=== PATIENT | female | born 1950 | race Asian ===

== ENCOUNTER 2018-04-22 13:44 | Observation (INO) | payer MEDICARE, BC ==
[2018-04-22] MEDS ORDERED: Morphine 5 MG/ML SYRINGE ONE (14:35)
[2018-04-22] MEDS ORDERED: Nitroglycerin 2% Ointment 1 INCH/1 GM Packet ONE (14:36)
[2018-04-22] MEDS ORDERED: Ondansetron PF 4 MG/2 ML Vial ONE ×2 (14:36→16:58)
[2018-04-22 15:04] LABS: Anion Gap 15 mmol/L (10-20); BUN (Urea Nitrogen) 7 mg/dL (9.8-20.1); Calc. Creatinine Clearance 0 mL/min (70-130); Calcium 8.9 mg/dL (7.8-10.44); Carbon Dioxide 22 mmol/L (23-31); Chloride 93 mmol/L (98-107); Estimated GFR-MDRD Greater than 90; Glucose 116 mg/dL (80-115); Potassium 4.3 mmol/L (3.5-5.1); Sodium 126 mmol/L (136-145)
[2018-04-22 15:07] LABS: #Lymphocytes 0.9 thou/uL (1.20-3.40); #Monocytes 0.2 thou/uL (0.11-0.59); #Neutrophils 2.1 thou/uL (1.40-6.50); %Basophils 0.7 % (0.0-1.0); %Eosinophils 1.1 % (0.0-10.0); %Lymphocytes 27.7 % (21.0-51.0); %Monocytes 6.3 % (0.0-10.0); %Neutrophils 64.2 % (42.0-75.0); Elliptocytes SLIGHT = 2-5 cells (100X) (0-1/hpf); Hemoglobin 11.4 g/dL (12.0-16.0); MDiff Complete? YES; Mean Corpuscular HGB CONC 31.8 g/dL (32.0-36.0); Mean Corpuscular Hemoglobin 21.4 pg (27.0-31.0); Mean Corpuscular Volume 67.4 fl (81.0-99.0); Mean Platelet Volume 7.1 fL (7.4-10.4); Microcytosis SLIGHT = 6-15 cells (100X) (0-5/hpf); PLT Morphology Comment Appears Adequate; Platelet Count 198 thou/uL (130-400); Poikilocytosis SLIGHT = 6-15 cells (100X) (0-5/hpf); RBC Distribution Width 13.1 % (11.5-14.5); Red Blood Cell (RBC) Count 5.33 mill/uL (4.20-5.40); Tear Drops SLIGHT = 2-5 cells (100X) (0-1/hpf); White Blood Cell (WBC) Count 3.3 thou/uL (4.8-10.8)
[2018-04-22 15:08] LABS: Troponin I Less than 0.010 ng/mL (< 0.028)
--- NOTE | 2018-04-22 15:18 | RAD ---
UPRIGHT PORTABLE CHEST 1 VIEW: Date: 04/22/18 HISTORY: 67-year-old female with history of left shoulder pain, left neck pain, upper back pain, and chest mariano n. FINDINGS: Heart size is normal. The lungs are clear. No pneumonia, edema, or pleural effusion. IMPRESSION: No acute intrathoracic disease. Atherosclerosis of aorta. POS: [facility]
[2018-04-22 17:32] VITALS: BMI 18.9
[2018-04-22 18:20] LABS: Troponin I Less than 0.010 ng/mL (< 0.028)
[2018-04-22] MEDS: Sodium Chloride 0.9% 1,000 ML IV SCH (18:30)
[2018-04-22] MEDS: Acetaminophen 325 MG TAB PO PRN (18:31)
[2018-04-22] MEDS ORDERED: Ketorolac Tromethamine 30 MG/ML VIAL IVP SCH ×2 (20:00)
[2018-04-22] MEDS ORDERED: traZODone HCl 50 MG TAB PO PRN (20:06)
[2018-04-22] MEDS ORDERED: ALPRAZolam 0.25 MG TAB PO PRN (20:06)
[2018-04-22] MEDS ORDERED: diphenhydrAMINE 12.5 MG/5 ML UDCUP PO PRN (20:06)
[2018-04-22] MEDS: Famotidine 20 MG TAB PO SCH (20:08)
[2018-04-22] MEDS: Docusate 100 MG CAP PO SCH (20:08)
[2018-04-22 20:49] LABS: Troponin I Less than 0.010 ng/mL (< 0.028)
[2018-04-22] MEDS: Sucralfate 1 GM/10 ML UDCUP PO SCH (20:53)
[2018-04-22] MEDS: Ondansetron ODT 4 MG TAB PO PRN (20:59)
[2018-04-22] MEDS: Acetaminophen/Codeine 30-300mg Tablet PO PRN (20:59)
--- NOTE | 2018-04-22 21:01 | HP ---
DATE OF ADMISSION: 04/22/2018 CHIEF COMPLAINT: Left shoulder pain. HISTORY OF PRESENT ILLNESS: This is a 67-year-old female, who was in her usual state of health until 4 days ago. She went to a grocery store and was carrying a very heavy bag and she noticed a s udden onset of strain in her left shoulder and actually at the left scapular area. It was radiating to the shoulder. The patient was taking ibuprofen 200-400 mg very frequently at home and with no rel ief, she decided to come to the ER at [facility] and had an EKG, which was read as STEMI, but th e troponins were normal. So, a repeat EKG was done, which just showed a right bundle-branch block an d she was given morphine 4 mg, which made her very nauseous and she started throwing up. She also no kana to have a low sodium of 126. The patient is being admitted for hyponatremia and worsening pain o f the shoulder. The patient was seen along with her at the bedside. She was alert and orien kana. She was in excruciating pain. She complains of pain of 7/10 in intensity, sometimes goes up to 10, with no relief and it hurts when moving the neck, but denies having any injuries to the neck or any falls. Denies having any rash or any fever. Denies having any chest pain. No nausea, but she h ad vomiting following the morphine. She does not have any other known medical issues. Otherwise, bhanu purcell is in good health. PAST MEDICAL HISTORY: History of anxiety disorder, history of insomnia, and also has a history of os teoporosis. PAST SURGICAL HISTORY: Had L4-L5 repair in the past. SOCIAL HISTORY: The patient is not a known smoker. No history of alcohol. No history of illicit dr ug use. FAMILY HISTORY: No significant family history of coronary artery disease, but her daughter suffers w ith lupus. REVIEW OF SYSTEMS: All 12 systems are reviewed with the patient thoroughly and found to be negative at this time, except the ones described in HPI. Constitutional: Weight loss or gain, sense of well-being, ability to conduct usual activities, exerc ise tolerance. Skin/Breast: Rash, itching, changes in hair growth or loss, nail changes, breast lumps, tenderness, swelling, nipple discharge. Eyes: Vision, double vision, tearing, blind spots, pain. ENT/Mouth: Headaches (location, time of onset, duration, precipitating factors), vertigo, lightheadedness, injury. Vision, double vision, tearing, blind spots, pain, nose b leeding, colds, obstruction, discharge, dental difficulties, gingival bleeding, dentures, neck stiffn ess, pain, tenderness, masses in thyroid or other areas Cardiovascular: Precordial pain, substernal distress, palpitations, syncope, dyspnea on exertion, or thopnea, nocturnal paroxysmal dyspnea, edema, cyanosis, hypertension, heart murmurs, varicosities, ph lebitis, claudication. Respiratory: Pain, shortness of breath, wheezing, stridor, cough, hemoptysis, fever or night sweats Gastrointestinal: Poor appetite, dysphagia, indigestion, abdominal pain, heartburn, eructation, naus ea, vomiting, hematemesis, jaundice, constipation, or diarrhea, abnormal stools (steph-colored, tarry, bloody, greasy, foul smelling), flatulence, hemorrhoids, recent changes in bowel habits. Genitourinary: Urgency, frequency, dysuria, nocturia, hematuria, polyuria, oliguria, unusual (or iva nge in) color of urine, stones, hesitancy, change in size of stream, dribbling, acute retention or in continence, libido, potency. Musculoskeletal: Pain, swelling, redness or heat of muscles or joints, limitation, of motion, muscular weakness, atrophy, cramps. Neurologic/Psychiatric: Convulsions, paralyses, tremor, incoordination, paresthesias, difficulties w ith memory of speech, sensory or motor disturbances, or muscular coordination (ataxia, tremor), emoti onal problems, anxiety, depression, previous psychiatric care, unusual perceptions, hallucinations. Allergy/Immunologic: Skin rash, anemia, bleeding tendency, polydipsia, polyuria, intolerance to heat or cold. ALLERGIES: The patient has multiple allergies. DOXYCYCLINE, PHENOXYPYRIDINE, SULFA ANTIBIOTICS. HOME MEDICATIONS: 1. Alendronate 10 mg p.o. daily. 2. Alprazolam 0.25 mg p.o. p.r.n. 3. Diphenhydramine 12.5 mg p.o. daily. 4. Eletriptan 20-40 mg p.o. p.r.n. 5. Methocarbamol 750 mg p.o. daily. 6. Trazodone 50 mg p.o. p.r.n. PHYSICAL EXAMINATION: VITAL SIGNS: Blood pressure 140/69, heart rate is 58, respiratory rate is 15, saturation is 100% on room air. GENERAL: The patient is moderately built and moderately nourished. She appears to be in acute distr ess at this time with pain. She was seen lying in the bed supine. HEENT: Atraumatic, normocephalic. PERRLA. Extraocular muscles are intact. Oral mucosa is pink and moist. CARDIOVASCULAR: S1, S2 normal. No murmurs, rubs, or gallops. LUNGS: Bilateral air entry was equal. No wheezing, no crackles. ABDOMEN: Soft, nontender. No guarding. No rebound tenderness. Bowel sounds are normal. MUSCULOSKELETAL: No calf tenderness. No pedal edema. No joint tenderness. No joint swelling. SKIN: No cyanosis, no erythema, no rash, no pallor. CENTRAL NERVOUS SYSTEM: Cranial nerve examination II-XII were intact. No focal deficits were noted. NECK: No cervical spine tenderness was noted, but she does have pain on the left scapular area. No thyromegaly. No lymphadenopathy. PSYCHIATRIC: No signs of suicidal ideation. No signs of yaima were noted. LABORATORY DATA: WBC 3.3, hemoglobin is 11.4, hematocrit is 35.9, platelets 198. Sodium is 126, pot assium 4.3, chloride is 93, bicarbonate is 22, BUN is 7, creatinine is 0.63. Troponin was normal at 0.01. ASSESSMENT: 1. Acute hyponatremia. 2. Acute cervical spine strain. 3. Severe dehydration. 4. History of anxiety disorder. 5. History of osteoporosis. PLAN: 1. Plan is to closely monitor this patient. We will start the patient on normal saline at this time . The patient has severe hyponatremia, which should correct with normal saline. 2. The patient has left shoulder pain, which is coming from the scapular area, either it could be a cervical spine strain. As the patient has a strong history of osteoporosis, there could be micro fra ctures of the bone. We will do a CT of the cervical spine to look for any evidence of fracture or an y disk herniation. 3. We will treat the pain with Toradol as the patient has been very sensitive to morphine and other narcotics. We will do gastric protection with Carafate before meals and at bedtime along with Proton ix 40 mg daily. 4. The patient is severely dehydrated. We will continue to hydrate her at this time. 5. Deep venous thrombosis prophylaxis, Lovenox. I spent 75 minutes with this patient.
[2018-04-23] MEDS: Ketorolac Tromethamine 30 MG/ML VIAL IVP SCH ×3 (03:34→11:29)
[2018-04-23] MEDS: Sodium Chloride 0.9% 1,000 ML IV SCH (03:59)
[2018-04-23] MEDS: Acetaminophen/Codeine 30-300mg Tablet PO PRN (05:08)
[2018-04-23 05:35] LABS: #Lymphocytes 1.3 thou/uL (1.20-3.40); #Monocytes 0.4 thou/uL (0.11-0.59); #Neutrophils 2.9 thou/uL (1.40-6.50); %Basophils 0.3 % (0.0-1.0); %Eosinophils 0.6 % (0.0-10.0); %Lymphocytes 28.4 % (21.0-51.0); %Monocytes 7.7 % (0.0-10.0); %Neutrophils 62.9 % (42.0-75.0); Hemoglobin 11.5 g/dL (12.0-16.0); Mean Corpuscular HGB CONC 33.1 g/dL (32.0-36.0); Mean Corpuscular Hemoglobin 22.1 pg (27.0-31.0); Mean Corpuscular Volume 66.7 fl (81.0-99.0); Mean Platelet Volume 10.7 fL (7.4-10.4); Platelet Count 210 thou/uL (130-400); RBC Distribution Width 14.3 % (11.5-14.5); Red Blood Cell (RBC) Count 5.21 mill/uL (4.20-5.40); White Blood Cell (WBC) Count 4.7 thou/uL (4.8-10.8)
[2018-04-23 05:44] LABS: Anion Gap 12 mmol/L (10-20); BUN (Urea Nitrogen) 6 mg/dL (9.8-20.1); Calc. Creatinine Clearance 57 mL/min (70-130); Calcium 8.2 mg/dL (7.8-10.44); Carbon Dioxide 19 mmol/L (23-31); Chloride 97 mmol/L (98-107); Estimated GFR-MDRD Greater than 90; Glucose 104 mg/dL (80-115); Potassium 3.7 mmol/L (3.5-5.1); Sodium 124 mmol/L (136-145)
[2018-04-23] MEDS: Sucralfate 1 GM/10 ML UDCUP PO SCH ×2 (07:58→12:10)
[2018-04-23] MEDS ORDERED: Methocarbamol 500 MG TAB PO SCH (09:00)
[2018-04-23] MEDS ORDERED: Enoxaparin Sodium 40 MG/0.4 ML SYRINGE SC SCH (09:00)
[2018-04-23] MEDS: Docusate 100 MG CAP PO SCH (10:00)
[2018-04-23] MEDS: Famotidine 20 MG TAB PO SCH (10:00)
[2018-04-23] MEDS: Ondansetron ODT 4 MG TAB PO PRN (10:03)
--- NOTE | 2018-04-23 10:03 | CT ---
CERVICAL SPINE CT SCAN WITHOUT IV CONTRAST: Date: 04/23/18 HISTORY: 67-year-old female with history of neck pain. FINDINGS: There is some generalized disc osteophytosis and facet arthrosis, evidence for spondylosis. No eviden ce for acute fracture or dislocation. There are some moderate foraminal stenotic changes at C5-C6. IMPRESSION: Spondylosis. No acute fracture or dislocation. POS: [facility]
[2018-04-23] MEDS: Acetaminophen 325 MG TAB PO PRN (10:05)
[2018-04-23 12:13] VITALS: BP 123/59; TEMP 97.7
[2018-04-23] MEDS: Sucralfate 1 GM TAB PO SCH ×2 (12:16→18:10)
--- NOTE | 2018-04-23 15:26 | PDOC.PN ---
- Subjective Encounter Start Date: 04/23/18 Encounter Start Time: 15:32 Patient seen and examined following admission for acute neck pain, hyponatremia and dehydration. Still has some pain but feels much better. No acute events overnight. - Objective Resuscitation Status: Resuscitation Status FULL:Full Resuscitation MAR Reviewed: Yes Vital Signs & Weight: Vital Signs (12 hours) Temp Pulse Resp BP Pulse Ox 04/23/18 12:13 97.7 F 69 123/59 L 98 04/23/18 08:00 96.3 F L 61 16 04/23/18 07:56 96.3 F L 61 16 125/60 99 04/23/18 04:01 97.4 F L 56 L 20 128/58 L 98 Weight Weight 87 lb 8 oz I&O: 04/22/18 04/23/18 04/24/18 06:59 06:59 06:59 Intake Total 1787 Output Total 3200 Balance -1413 Result Diagrams: 04/23/18 04:32 04/23/18 04:32 Phys Exam - Physical Examination Constitutional: NAD HEENT: moist MMs, sclera anicteric Neck: no JVD Limited range of movement 2/2 pain. Respiratory: no wheezing, no rales, no rhonchi, clear to auscultation bilateral Cardiovascular: RRR, no significant murmur, no rub Gastrointestinal: soft, non-tender, no distention, positive bowel sounds Musculoskeletal: no edema, pulses present Neurological: non-focal, moves all 4 limbs Psychiatric: normal affect, A&O x 3 Skin: no rash, normal turgor Dx/Plan (1) Neck pain, acute Code(s): M54.2 - CERVICALGIA Status: Acute Comment: Likely from cervical spondylosis, as seen on CT. Will continue pain control and muscle relaxants. PT/ OT as well. (2) Hyponatremia Code(s): E87.1 - HYPO-OSMOLALITY AND HYPONATREMIA Status: Acute Comment: Unclear etiology. ? SiADH. Will obtain ueine studies w Serum and uerine osmolality, as well as lipid profile. D/C IVF for now. (3) Anxiety disorder Code(s): F41.9 - ANXIETY DISORDER, UNSPECIFIED Status: Chronic Qualifiers: Anxiety disorder type: generalized anxiety disorder Qualified Code(s): F41.1 - Generalized anxiety disorder (4) Osteoporosis Code(s): M81.0 - AGE-RELATED OSTEOPOROSIS W/O CURRENT PATHOLOGICAL FRACTURE Status: Acute Qualifiers: Osteoporosis type: age-related Presence of current pathological fracture: without current pathological fracture Qualified Code(s): M81.0 - Age-related osteoporosis without current pathological fracture Comment: Continue Fosamax. - Plan cont current plan of care, plan discussed w/ family, PT/OT, out of bed/ambulate , DVT proph w/lovenox * . Review of Systems - Medications/Allergies Allergies/Adverse Reactions: Allergies Allergy/AdvReac Type Severity Reaction Status Date / Time doxycycline Allergy Verified 04/22/18 17:59 phenazopyridine Allergy Verified 04/22/18 17:59 [From Pyridate] Sulfa (Sulfonamide Allergy Verified 04/22/18 17:59 Antibiotics) sumatriptan [From Imitrex] Allergy Verified 04/22/18 17:59 Medications: Current Medications Acetaminophen (Tylenol) 650 mg PO Q4H PRN PRN Reason: Headache/Fever or Pain Last Admin: 04/23/18 10:05 Dose: 650 mg Acetaminophen/Codeine Phosphate (Tylenol #3) 1 tab PO Q6H PRN PRN Reason: pain Last Admin: 04/23/18 05:08 Dose: 1 tab Alendronate Sodium (Fosamax) 10 mg PO 0600 [facility] Last Admin: 04/23/18 05:57 Dose: 10 mg Alprazolam (Xanax) 0.25 mg PO HSPRN PRN PRN Reason: Insomnia Last Admin: 04/22/18 20:26 Dose: 0.25 mg Diphenhydramine HCl (Benadryl) 12.5 mg PO DAILYPRN PRN PRN Reason: Hives Docusate Sodium (Colace) 100 mg PO BID [facility] Last Admin: 04/23/18 10:00 Dose: 100 mg Enoxaparin Sodium (Lovenox) 40 mg SC 0900 [facility] Last Admin: 04/23/18 10:00 Dose: 40 mg Famotidine (Pepcid) 20 mg PO BID [facility] Last Admin: 04/23/18 10:00 Dose: 20 mg Ketorolac Tromethamine (Toradol) 30 mg IVP 0400,1200,2000 [facility] Stop: 04/23/18 20:01 Last Admin: 04/23/18 11:29 Dose: 30 mg Methocarbamol (Robaxin) 750 mg PO DAILY [facility] Last Admin: 04/23/18 09:59 Dose: Not Given Ondansetron HCl (Zofran Odt) 4 mg PO Q6H PRN PRN Reason: Nausea/Vomiting Last Admin: 04/23/18 10:03 Dose: 4 mg Pantoprazole Sodium (Protonix) 40 mg PO DAILY [facility] Last Admin: 04/23/18 10:00 Dose: 40 mg Sodium Chloride (Flush - Normal Saline) 10 ml IVF Q12HR [facility] Last Admin: 04/23/18 10:01 Dose: Not Given Sodium Chloride (Flush - Normal Saline) 10 ml IVF PRN PRN PRN Reason: Saline Flush Sucralfate (Carafate) 1 gm PO ACHS [facility] Last Admin: 04/23/18 12:16 Dose: Not Given Trazodone HCl (Desyrel) 50 mg PO HSPRN PRN PRN Reason: insomnia
[2018-04-23] MEDS ORDERED: Ibuprofen 600 MG TAB PO PRN (15:33)
[2018-04-23] MEDS ORDERED: Lorazepam 2 MG/ML VIAL SLOW IVP SCH (16:15)
[2018-04-23] MEDS ORDERED: Sucralfate 1 GM TAB PO SCH (17:00)
[2018-04-23 18:23] LABS: Potassium, Urine Less than 10.0 mmol/L; Sodium, Urine 30 mmol/L (Not Available); Urea Nitrogen, Random Urine 98 mg/dl
--- NOTE | 2018-04-23 20:07 | DIS ---
DATE OF ADMISSION: 04/22/2018 DATE OF DISCHARGE: 04/23/2018 DISCHARGE DIAGNOSES: Cervical spondylosis, severe dehydration, anxiety disorder, osteoporosis, hypon atremia. HISTORY OF PRESENT ILLNESS AND HOSPITAL COURSE: Ms. Ale Aguilera is a 67-year-old female with a past medica l history of anxiety disorder, insomnia, osteoporosis who was in her usual state of health until 4 da ys ago after she went to a grocery store and after carrying a very heavy bag, she noticed a sudden on set of strain in her left shoulder and left scapular area radiating to the shoulder. She usually daphne es about 200-400 mg of ibuprofen at home for pain with no relief and decided to come to [facility] on ER for further evaluation. She had an initial EKG, which was read as STEMI, but her troponins rem ained normal and she had no chest pain. A repeat EKG was done and it showed right bundle branch bloc k. She was given IV morphine 4 mg, which made her nauseous and had some vomiting episodes. In addit ion, she was noted to have a sodium of 126. She was then admitted for hyponatremia and worsening mariano n in her right shoulder. Physical examination showed pain, which was excruciating, 10/10. She had a CT of her cervical spine, which showed cervical spondylosis, but no other abnormalities. While in h ospital, her pain was controlled with Toradol. Her hyponatremia was also being investigated as her s odium was 126 and she was started on hydration with further reduction in serum sodium up to 124. She had been started on hydration for this, so IV fluids were discontinued. Further investigation was d iscussed with the patient, but the patient reported her pain was better and would like to be discharg ed home. She has an appointment tomorrow with her primary care physician for pain control and she di d not want to miss this appointment. Further lab review reveals she had a sodium of 127 in 2012, so it is likely this might be chronic hyponatremia. Since the patient was asymptomatic and urine study shows urine sodium of 30 and urine potassium less than 10 and BUN of 98, it was deemed okay to discha rge the patient home as she has followup with her primary care physician tomorrow. She is instructed to ensure she has repeat labs at the clinic tomorrow. DISCHARGE MEDICATIONS: Trazodone 50 mg as needed for insomnia, methocarbamol 750 mg daily, eletripta n 20-40 mg as needed for headaches, alprazolam 0.25 mg as needed for insomnia, Benadryl 12.5 mg as ne eded for hives p.r.n., alendronate 70 mg every 7 days. PHYSICAL EXAMINATION: The patient was seen and examined on the day of discharge. For further detail s, see today's progress notes. LABORATORY DATA: WBC 4.7, hemoglobin 11.5, platelet count 210,000. Sodium 124, potassium 3.7, chlor dawson 97, carbon dioxide 19, anion gap 12, BUN 6, creatinine 0.59, glucose 104, calcium 8.2. IMAGING: CT cervical spine: This showed spondylosis with no acute fracture or dislocation. CONSULTS: None. CONDITION AT DISCHARGE: Stable and improved. PROCEDURES: None. DIET: Regular. CARE GOALS: To follow up with her primary care physician tomorrow for repeat labs. ACTIVITY: To resume as tolerated. DISCHARGE TIME: 65 minutes including chart review and documentation.
--- NOTE | 2018-06-03 16:16 | EKG ---
Test Reason : Blood Pressure : / mmHG Vent. Rate : 056 BPM Atrial Rate : 056 BPM P-R Int : 180 ms QRS Dur : 086 ms QT Int : 468 ms P-R-T Axes : 065 076 074 degrees QTc Int : [address] elevation consider inferior injury or acute infarct with J-point elevation No recipocal changes Abnormal ECG Confirmed by BRODY WONG, ROSA ([id number]), social media editor AMY REAVES ([id number]) on 06/03/2018 4:16:21 PM Referred By: BRODY Confirmed By:ROSA SKINNER MD
--- NOTE | 2018-06-03 16:17 | EKG ---
Test Reason : Blood Pressure : / mmHG Vent. Rate : 054 BPM Atrial Rate : 054 BPM P-R Int : 164 ms QRS Dur : 076 ms QT Int : 484 ms P-R-T Axes : 047 071 076 degrees QTc Int : [address] elevation, consider early repolarization, pericarditis, or injury Incomplete right bundle branch block Abnormal ECG Confirmed by BRODY WONG, ROSA ([id number]), photograph editor AMY REAVES ([id number]) on 06/03/2018 4:16:38 PM Referred By: Confirmed By:ROSA SKINNER MD
== END 2018-04-23 18:10 | disposition home or self-care (01) ==
LOC: SCSER 13:44 → 2NO 17:20
PROVIDERS: ADMIT Internal Medicine; ATTEND Internal Medicine
DX: M47.812 Spondylosis without myelopathy or radiculopathy, cervical region (principal); M81.0 Age-related osteoporosis without current pathological fracture; E86.0 Dehydration; E87.1 Hypo-osmolality and hyponatremia; G47.00 Insomnia, unspecified; Z79.899 Other long term (current) drug therapy
CPT/HCPCS: 71045; 72125; 80048 ×2; 82436; 82553; 84133; 84300; 84484 ×2; 84540; 85025 ×2; 93005; 96361; 96372; 96374; 96375 ×2; 96376 ×2; 97139; 99285; G0378; 36415; J2270; J1650; J1885; J2405; Q0162

== ENCOUNTER 2018-05-03 21:09 | Inpatient (IN) | payer MEDICARE, BC ==
[2018-05-03] MEDS ORDERED: Metoclopramide HCl 10 MG/2 ML VIAL ONE (21:47)
[2018-05-03] MEDS ORDERED: Ketorolac Tromethamine 30 MG/ML VIAL ONE (21:47)
--- NOTE | 2018-05-03 22:03 | RAD ---
PORTABLE CHEST: 05/03/18 HISTORY: Weakness. Lungs are clear. Heart and mediastinum appear unremarkable. Vascular markings normal. IMPRESSION: No acute process. POS: [facility]
[2018-05-03 22:21] LABS: #Eosinphils 0.1 thou/uL (0.0-0.7); #Lymphocytes 0.9 thou/uL (1.20-3.40); #Monocytes 0.6 thou/uL (0.11-0.59); #Neutrophils 5.4 thou/uL (1.40-6.50); %Basophils 0.2 % (0.0-1.0); %Eosinophils 0.8 % (0.0-10.0); %Lymphocytes 12.6 % (21.0-51.0); %Monocytes 8.9 % (0.0-10.0); %Neutrophils 77.6 % (42.0-75.0); Hemoglobin 11.2 g/dL (12.0-16.0); Mean Corpuscular HGB CONC 32.5 g/dL (32.0-36.0); Mean Corpuscular Hemoglobin 21.9 pg (27.0-31.0); Mean Corpuscular Volume 67.3 fl (81.0-99.0); Mean Platelet Volume 9.7 fL (7.4-10.4); Platelet Count 263 thou/uL (130-400); RBC Distribution Width 13.9 % (11.5-14.5); Red Blood Cell (RBC) Count 5.12 mill/uL (4.20-5.40)
[2018-05-03 22:39] LABS: ALT (SGPT) 29 U/L (8-55); AST (SGOT) 22 U/L (5-34); Albumin 3.7 g/dL (3.4-4.8); Alkaline Phosphatase 43 U/L (40-150); Anion Gap 12 mmol/L (10-20); BUN (Urea Nitrogen) 11 mg/dL (9.8-20.1); Bilirubin, Total 0.8 mg/dL (0.2-1.2); Calc. Creatinine Clearance 0 mL/min (70-130); Calcium 7.9 mg/dL (7.8-10.44); Carbon Dioxide 22 mmol/L (23-31); Chloride 90 mmol/L (98-107); Estimated GFR-MDRD Greater than 90; Globulin 2.7 g/dL (2.4-3.5); Glucose 112 mg/dL (80-115); Potassium 4.1 mmol/L (3.5-5.1); Protein, Total 6.4 g/dL (6.0-8.3); Sodium 120 mmol/L (136-145)
[2018-05-03] MEDS ORDERED: ALPRAZolam 0.25 MG TAB ONE (23:41)
[2018-05-04 00:23] LABS: Magnesium 2.1 mg/dL (1.6-2.6); Phosphorus 3.1 mg/dL (2.3-4.7)
[2018-05-04] MEDS ORDERED: Acetaminophen 325 MG TAB PO PRN (01:23)
[2018-05-04] MEDS ORDERED: Sodium Chloride 0.9% 1,000 ML IV SCH ×2 (01:23→04:00)
[2018-05-04] MEDS ORDERED: Ondansetron HCl/PF 4 MG/2 ML Vial IVP PRN (01:23)
[2018-05-04] MEDS ORDERED: Ondansetron ODT 4 MG TAB SL PRN (01:23)
[2018-05-04] MEDS ORDERED: Ketorolac Tromethamine 30 MG/ML VIAL IVP SCH (03:15)
[2018-05-04] MEDS ORDERED: Calcium Carbonate 500 MG ChewTAB PO PRN (03:57)
[2018-05-04] MEDS ORDERED: Senokot 8.6 MG TAB PO PRN (03:57)
--- NOTE | 2018-05-04 04:02 | PDOC.EVN ---
Event Note - Event Note Event Note: Patient seen and examined. Note dictated. Full code. DPOA - spouse
--- NOTE | 2018-05-04 04:40 | HP ---
DATE OF ADMISSION: 05/03/2018 PRIMARY CARE PHYSICIAN: Carroll Youssef M.D. CHIEF COMPLAINT: Nausea, vomiting. HISTORY OF PRESENT ILLNESS: The patient is a 67-year-old female with recent hospitalization for hypo natremia as well as neck pain, presented to the emergency room with nausea and vomiting that has been going on for the last 24 hours. She had 3 episodes of vomiting. She was recently diagnosed with ce rvical spondylosis. She is scheduled to see Dr. Meza after 2 weeks. She has been taking hydroco done and tramadol for pain. She recently completed Medrol Dosepak. She had mild abdominal discomfor t without any diarrhea, constipation or jaundice. She also had some tingling in the left hand that i mproved with Medrol Dosepak. In the emergency room, her sodium was 120 with a serum osmolality 255. She received morphine, Reglan , Toradol with IV fluid and Xanax in the emergency room. PAST MEDICAL HISTORY: 1. Recent hospitalization for hyponatremia. 2. Cervical spondylosis scheduled to see Dr. Meza. 3. History of breast cancer. 4. Osteoporosis. 5. Anxiety. 6. Insomnia. PAST SURGICAL HISTORY: 1. Left mastectomy for breast cancer. 2. Low back surgery for sciatica. ALLERGIES: Patient is allergic to DOXYCYCLINE, SULFA, SUMATRIPTAN and PHENAZOPYRIDINE. FAMILY HISTORY: Father with high blood pressure and mother with lupus. CURRENT HOME MEDICATIONS: Fosamax 70 mg daily, Xanax 0.25 mg as needed, Benadryl as needed, eletript an p.r.n. for migraines. SOCIAL HISTORY: Patient currently lives at home. She denies any smoking, alcohol or drug use. REVIEW OF SYSTEMS: The following complete review of systems was negative, unless otherwise mentioned in the HPI or below: Constitutional: Weight loss or gain, ability to conduct usual activities. Sk in: Rash, itching. Eyes: Double vision, pain. ENT/Mouth: Nose bleeding, neck stiffness, pain, te nderness. Cardiovascular: Palpitations, dyspnea on exertion, orthopnea. Respiratory: Shortness of breath, wheezing, cough, hemoptysis, fever or night sweats. Gastrointestinal: Poor appetite, abdom inal pain, heartburn, nausea, vomiting, constipation, or diarrhea. Genitourinary: Urgency, frequenc y, dysuria, nocturia. Musculoskeletal: Pain, swelling. Neurologic/Psychiatric: Anxiety, depressio n. Allergy/Immunologic: Skin rash, bleeding tendency. PHYSICAL EXAMINATION: VITAL SIGNS: In the emergency room showed temperature 97.7, respirations 14, pulse 61, blood pressur e 157/79 with O2 saturation 98% on room air. GENERAL: A 67-year-old female in mild distress due to neck discomfort. HEENT: Head is atraumatic, normocephalic. Sclerae are anicteric. Moist mucous membrane, no oral le sea. NECK: Supple, no JVD appreciated. No carotid bruit. LUNGS: Clear to auscultation bilaterally. No wheezing, rales or rhonchi. HEART: S1, S2 present. Regular rate and rhythm. No murmur, rubs, or gallops. ABDOMEN: Soft, nontender, bowel sounds present. EXTREMITIES: No edema or calf tenderness. NEUROLOGIC: Grossly nonfocal, moves all four extremities, numbness over the left fingers has improve d. PSYCHIATRY: Alert, awake, oriented x3. SKIN: Warm and dry. LYMPH NODES: No palpable lymph nodes in the neck. PERIPHERAL VASCULAR: Radial pulses palpable bilaterally. MUSCULOSKELETAL: No joint swelling or tenderness. LABORATORY AND X-RAY FINDINGS: 1. Sodium 120 with serum osmolality 255. Potassium 4.1, magnesium, phosphorus in normal range, crea tinine 0.58 with BUN 11. 2. WBC 7 with hemoglobin 11.2, MCV 67.3, MCH 21.9, platelet count 263. 3. Chest x-ray by my review was negative for infiltrate. EKG by my review showed sinus rhythm witho ut significant ST-T wave changes. IMPRESSION AND PLAN: 1. Hypotonic hyponatremia. 2. Nausea and vomiting, probably secondary to #1. Other possibilities include nausea and vomiting s econdary to hydrocodone. 3. Anxiety. 4. Cervical spondylosis. 5. Chronic insomnia. 6. Osteoporosis. 7. Hypochromic microcytic anemia. 8. History of breast cancer, status post left mastectomy. The patient will be monitored on the telemetry unit. We will check urine sodium and urine osmolality . Also, check TSH. The patient was recently on Medrol Dosepak. We will monitor sodium closely. Pa in controlled with tramadol and hydrocodone. We will consult Nephrology. Plan of care was discussed with the patient in detail. She stated understanding.
[2018-05-04 05:56] LABS: Anion Gap 14 mmol/L (10-20); BUN (Urea Nitrogen) 7 mg/dL (9.8-20.1); Calc. Creatinine Clearance 56 mL/min (70-130); Calcium 7.8 mg/dL (7.8-10.44); Carbon Dioxide 17 mmol/L (23-31); Chloride 98 mmol/L (98-107); Estimated GFR-MDRD Greater than 90; Glucose 92 mg/dL (80-115); Potassium 4.4 mmol/L (3.5-5.1); Sodium 125 mmol/L (136-145)
[2018-05-04] MEDS: Docusate 100 MG CAP PO SCH ×2 (08:21→21:03)
[2018-05-04] MEDS: traMADol HCl 50 MG TAB PO PRN ×3 (08:23→21:02)
[2018-05-04] MEDS: Ondansetron ODT 4 MG TAB PO PRN ×2 (08:23→21:01)
[2018-05-04] MEDS ORDERED: Multivit, Therapeutic 1 TAB PO SCH (09:00)
--- NOTE | 2018-05-04 09:56 | PDOC.PN ---
- Subjective Encounter Start Date: 05/04/18 Encounter Start Time: 07:45 -: old records requested/rev Patient seen and examined for hyponatremia, c/o cervical pain, No overnight events - Objective Resuscitation Status: Resuscitation Status FULL:Full Resuscitation MAR Reviewed: Yes Vital Signs & Weight: Vital Signs (12 hours) Temp Pulse Resp BP Pulse Ox 05/04/18 08:42 97.9 F 74 16 05/04/18 08:16 97.9 F 74 16 133/75 98 05/04/18 04:00 98.2 F 83 18 151/80 H 97 05/04/18 01:00 98.2 F 83 18 98 Weight Admit Weight 83 lb Weight 83 lb I&O: 05/03/18 05/04/18 05/05/18 06:59 06:59 06:59 Intake Total 500 Output Total 900 Balance -400 Result Diagrams: 05/03/18 22:11 05/04/18 05:06 Radiology Reviewed by me: Yes EKG Reviewed by me: Yes (nsr) Phys Exam - Physical Examination Constitutional: NAD HEENT: PERRLA, moist MMs, sclera anicteric Neck: no nodes, no JVD Respiratory: no wheezing, no rales, no rhonchi Cardiovascular: RRR, no significant murmur, no rub Gastrointestinal: soft, non-tender, no distention, positive bowel sounds Musculoskeletal: no edema, pulses present Neurological: non-focal, normal sensation, moves all 4 limbs muscle wasting on both hand Lymphatic: no nodes Psychiatric: normal affect, A&O x 3 Skin: no rash, normal turgor Dx/Plan (1) Nausea and vomiting Code(s): R11.2 - NAUSEA WITH VOMITING, UNSPECIFIED Status: Acute (2) Hyponatremia Code(s): E87.1 - HYPO-OSMOLALITY AND HYPONATREMIA Status: Acute Comment: (3) Cervical spondylosis with myelopathy and radiculopathy Code(s): M47.12 - OTHER SPONDYLOSIS WITH MYELOPATHY, CERVICAL REGION; M47.22 - OTHER SPONDYLOSIS WITH RADICULOPATHY, CERVICAL REGION Status: Chronic (4) Anxiety disorder Code(s): F41.9 - ANXIETY DISORDER, UNSPECIFIED Status: Chronic Qualifiers: (5) GERD (gastroesophageal reflux disease) Code(s): K21.9 - GASTRO-ESOPHAGEAL REFLUX DISEASE WITHOUT ESOPHAGITIS Status: Chronic (6) Microcytic anemia Code(s): D50.9 - IRON DEFICIENCY ANEMIA, UNSPECIFIED Status: Chronic (7) Osteoporosis Code(s): M81.0 - AGE-RELATED OSTEOPOROSIS W/O CURRENT PATHOLOGICAL FRACTURE Status: Chronic Qualifiers: Comment: - Plan cont current plan of care, plan discussed w/ family * continue IVF, sodium improving, nephrology consulted * will consult neurosurgeon for cervical radiculopathy * medication reviewed as below * symptomatic treatment * discussed with * pain control. Review of Systems - Review of Systems Constitutional: negative: fever, chills, sweats, weakness, malaise, other Eyes: negative: Pain, Vision Change, Conjunctivae Inflammation, Eyelid Inflammation, Redness, Other ENT: negative: Ear Pain, Ear Discharge, Nose Pain, Nose Discharge, Nose Congestion, Mouth Pain, Mouth Swelling, Throat Pain, Throat Swelling, Other Respiratory: negative: Cough, Dry, Shortness of Breath, Hemoptysis, SOB with Excertion, Pleuritic Pain, Sputum, Wheezing Cardiovascular: negative: chest pain, palpitations, orthopnea, paroxysmal nocturnal dyspnea, edema, light headedness, other Gastrointestinal: negative: Nausea, Vomiting, Abdominal Pain, Diarrhea, Constipation, Melena, Hematochezia, Other Genitourinary: negative: Dysuria, Frequency, Incontinence, Hematuria, Retention , Other Musculoskeletal: Neck Pain, Shoulder Pain. negative: Arm Pain, Back Pain, Hand Pain, Leg Pain, Foot Pain, Other - Medications/Allergies Allergies/Adverse Reactions: Allergies Allergy/AdvReac Type Severity Reaction Status Date / Time Sulfa (Sulfonamide Allergy Severe Verified 05/04/18 04:34 Antibiotics) acetaminophen [From Midrin] Allergy Verified 05/04/18 04:35 dichloralphenazone Allergy Verified 05/04/18 04:35 [From Midrin] doxycycline Allergy Verified 05/04/18 02:10 hydrocodone Allergy Verified 05/04/18 04:34 isometheptene [From Midrin] Allergy Verified 05/04/18 04:35 morphine Allergy Verified 05/04/18 04:34 phenazopyridine Allergy Verified 05/04/18 02:10 [From Pyridate] sumatriptan [From Imitrex] Allergy Verified 05/04/18 02:10 Medications: Current Medications Acetaminophen (Tylenol) 650 mg PO Q4H PRN PRN Reason: Headache/Fever or Pain Alprazolam (Xanax) 0.25 mg PO BIDPRN PRN PRN Reason: Anxiety/Agitation Calcium Carbonate (Tums) 1,000 mg PO Q4H PRN PRN Reason: Heartburn or Indigestion Docusate Sodium (Colace) 100 mg PO BID [facility] Last Admin: 05/04/18 08:21 Dose: 100 mg Sodium Chloride (Normal Saline 0.9%) 1,000 mls @ 80 mls/hr IV .[id number] [facility] Last Admin: 05/04/18 05:34 Dose: Not Given Multivitamins (Theragran) 1 tab PO DAILY [facility] Last Admin: 05/04/18 08:22 Dose: 1 tab Ondansetron HCl (Zofran Odt) 4 mg PO Q6H PRN PRN Reason: Nausea/Vomiting Last Admin: 05/04/18 08:23 Dose: 4 mg Ondansetron HCl (Zofran) 4 mg IVP Q6H PRN PRN Reason: Nausea/Vomiting Pantoprazole Sodium (Protonix) 40 mg PO DAILY [facility] Last Admin: 05/04/18 08:25 Dose: 40 mg Senna (Senokot) 2 tab PO HSPRN PRN PRN Reason: Constipation Sodium Chloride (Flush - Normal Saline) 10 ml IVF Q12HR [facility] Last Admin: 05/04/18 08:25 Dose: Not Given Sodium Chloride (Flush - Normal Saline) 10 ml IVF PRN PRN PRN Reason: Saline Flush Tramadol HCl (Ultram) 50 mg PO Q6H PRN PRN Reason: Moderate Pain (4-6) Last Admin: 05/04/18 08:23 Dose: 50 mg
[2018-05-04] MEDS ORDERED: Loperamide HCl 2 MG CAP PO PRN (09:57)
[2018-05-04] MEDS ORDERED: Mag-Al 1200 mg/1200 mg/30 ML UDCUP PO PRN (09:57)
[2018-05-04] MEDS ORDERED: Artificial Tears 18 DROP/0.9 ML EA EYE PRN (09:57)
[2018-05-04] MEDS ORDERED: Milk Of Magnesia 30 ML UDCUP PO PRN (09:57)
[2018-05-04] MEDS ORDERED: Eucerin (Mineral Oil/Petrolatum,White) 30 gm Jar TOP PRN (09:57)
[2018-05-04] MEDS ORDERED: Sodium Chloride 0.65% Nasal 44 ML BOT EA NARE PRN (09:57)
[2018-05-04] MEDS ORDERED: Loratadine 10 MG TAB PO PRN (09:57)
[2018-05-04] MEDS ORDERED: Diabetic Tussin 200 MG/10 ML UDCUP PO PRN (09:57)
[2018-05-04] MEDS ORDERED: Chloraseptic Spray 180 ml Bottle PO PRN (09:57)
[2018-05-04] MEDS ORDERED: hydrALAZINE 20 MG/ML VIAL SLOW IVP PRN (09:57)
[2018-05-04] MEDS ORDERED: Bisacodyl 10 MG SUPP PR PRN (09:57)
[2018-05-04 10:36] LABS: Sodium 128 mmol/L (136-145)
--- NOTE | 2018-05-04 13:28 | CON ---
DATE OF CONSULTATION: 05/04/2018 REFERRING PHYSICIAN: Dr. Layne REASON FOR CONSULT: Hyponatremia. REASON FOR ADMISSION: Nausea, vomiting. HISTORY OF PRESENT ILLNESS: This is a 67-year-old female with history of hyponatremia, cervical spon dylosis, breast cancer, osteoporosis, anxiety, insomnia, came to the hospital with nausea, vomiting, and was found to have sodium level of 120. Nephrology was consulted and she was on IV fluids. This morning, sodium was already 128. No fever or chills. She is feeling a little bit better, still with dry mucosa. She is also having some neck pain and is having evaluation and possible surgery. PAST MEDICAL HISTORY: Positive for hyponatremia, cervical spondylosis, breast cancer, anxiety. PAST SURGICAL HISTORY: Left mastectomy, low back surgery. HOME MEDICATIONS: Fosamax, Xanax, Benadryl, triptan p.r.n. for migraine. ALLERGIES: DOXYCYCLINE, SULFA, SUMATRIPTAN, BENAZOPRIL. SOCIAL HISTORY: No smoking, alcohol, or illicit drug abuse. FAMILY HISTORY: No history of kidney disease. She is from [facility]. REVIEW OF SYSTEMS: The following complete review of systems was negative, unless otherwise mentioned in the HPI or below: Constitutional: Weight loss or gain, ability to conduct usual activities. Skin: Rash, itching. Eyes: Double vision, pain. ENT/Mouth: Nose bleeding, neck stiffness, pain, tenderness. Cardiovascular: Palpitations, dyspnea on exertion, orthopnea. Respiratory: Shortness of breath, wheezing, cough, hemoptysis, fever or night sweats. Gastrointestinal: Poor appetite, abdominal pain, heartburn, nausea, vomiting, constipation, or diarrhea. Genitourinary: Urgency, frequency, dysuria, nocturia. Musculoskeletal: Pain, swelling. Neurologic/Psychiatric: Anxiety, depression. Allergy/Immunologic: Skin rash, bleeding tendency. PHYSICAL EXAMINATION: GENERAL: This is a thin-built female in no apparent distress. VITAL SIGNS: Temperature 99, pulse 70, respiratory rate 18, blood pressure 121/67. HEENT: Atraumatic, normocephalic. Oral mucosa is moist. NECK: Supple. CARDIOVASCULAR: S1, S2 regular. RESPIRATORY: Clear. MUSCULOSKELETAL: No tenderness. No edema. DERMATOLOGIC: No skin rash. NEUROLOGIC: Alert, awake. PSYCHIATRIC: Mood and affect normal. LABORATORY: Hemoglobin 11.2. Sodium is 128, potassium 4.4, BUN 7, creatinine 0.5. ASSESSMENT AND PLAN: 1. Hyponatremia, most likely from hypovolemia and better with IV fluids. Plan is to stop IV fluids. I will also check a cortisol level. 2. Edema, controlled. 3. Hypertension, stable. 4. Hypochloremia. 5. Anemia. 6. Hyponatremia could be a combination of syndrome of inappropriate antidiuretic hormone secretion g iven her neck pain, but currently better with IV fluids so hypovolemia is the main cause now, but si nce the correction is already 8 mEq per liter the plan is to stop IV fluids and monitor. We will follow.
[2018-05-04] MEDS: Ondansetron HCl/PF 4 MG/2 ML Vial IVP PRN (14:32)
[2018-05-04 16:29] LABS: Sodium 130 mmol/L (136-145)
[2018-05-04 16:34] LABS: Anion Gap 12 mmol/L (10-20); BUN (Urea Nitrogen) 9 mg/dL (9.8-20.1); Calc. Creatinine Clearance 39 mL/min (70-130); Calcium 8.4 mg/dL (7.8-10.44); Carbon Dioxide 23 mmol/L (23-31); Chloride 99 mmol/L (98-107); Estimated GFR-MDRD 68; Glucose 129 mg/dL (80-115); Potassium 4.2 mmol/L (3.5-5.1); Sodium 130 mmol/L (136-145)
[2018-05-04 22:16] LABS: Sodium 127 mmol/L (136-145)
[2018-05-04] MEDS: ALPRAZolam 0.25 MG TAB PO PRN (22:24)
[2018-05-04] MEDS: Ketorolac Tromethamine 30 MG/ML VIAL IVP PRN (22:39)
[2018-05-05 05:41] LABS: Anion Gap 9 mmol/L (10-20); BUN (Urea Nitrogen) 12 mg/dL (9.8-20.1); Calc. Creatinine Clearance 54 mL/min (70-130); Calcium 8.4 mg/dL (7.8-10.44); Carbon Dioxide 26 mmol/L (23-31); Chloride 95 mmol/L (98-107); Estimated GFR-MDRD Greater than 90; Glucose 97 mg/dL (80-115); Potassium 4.3 mmol/L (3.5-5.1); Sodium 126 mmol/L (136-145)
[2018-05-05 05:57] LABS: #Eosinphils 0.1 thou/uL (0.0-0.7); #Lymphocytes 1.4 thou/uL (1.20-3.40); #Monocytes 0.5 thou/uL (0.11-0.59); #Neutrophils 2.5 thou/uL (1.40-6.50); %Basophils 0.9 % (0.0-1.0); %Eosinophils 2.5 % (0.0-10.0); %Lymphocytes 31.1 % (21.0-51.0); %Monocytes 10.5 % (0.0-10.0); %Neutrophils 55.1 % (42.0-75.0); Mean Corpuscular HGB CONC 33.2 g/dL (32.0-36.0); Mean Corpuscular Hemoglobin 21.9 pg (27.0-31.0); Mean Corpuscular Volume 66.1 fl (81.0-99.0); Platelet Count 285 thou/uL (130-400); RBC Distribution Width 14.1 % (11.5-14.5); White Blood Cell (WBC) Count 4.5 thou/uL (4.8-10.8)
[2018-05-05] MEDS: Ferrous Sulfate 325 MG TAB PO SCH ×2 (07:53→16:22)
[2018-05-05] MEDS: Docusate 100 MG CAP PO SCH ×2 (07:53→21:12)
[2018-05-05] MEDS: traMADol HCl 50 MG TAB PO PRN ×3 (07:54→21:10)
[2018-05-05] MEDS: Ondansetron ODT 4 MG TAB PO PRN ×2 (07:54→13:38)
[2018-05-05] MEDS: Multivitamin W/ Minerals 1 TAB PO SCH (07:54)
[2018-05-05] MEDS: Acetaminophen 325 MG TAB PO PRN ×2 (07:54→13:36)
[2018-05-05] MEDS: Sodium Chloride 0.9% 1,000 ML IV SCH ×2 (08:07→21:10)
[2018-05-05] MEDS: Ketorolac Tromethamine 30 MG/ML VIAL IVP PRN ×2 (08:13→16:16)
--- NOTE | 2018-05-05 10:54 | PDOC.PN ---
- Subjective Encounter Start Date: 05/05/18 Encounter Start Time: 07:30 Patient seen and examined for hyponatremia, has neck pain. No overnight events - Objective Resuscitation Status: Resuscitation Status FULL:Full Resuscitation MAR Reviewed: Yes Vital Signs & Weight: Vital Signs (12 hours) Temp Pulse Resp BP Pulse Ox 05/05/18 10:21 97.8 F 71 16 159/70 H 99 05/05/18 08:45 97.5 F L 72 16 05/05/18 08:05 97.5 F L 72 16 116/75 98 05/05/18 03:31 98.5 F 82 15 135/65 99 Weight Admit Weight 83 lb Weight 83 lb 9.6 oz I&O: 05/04/18 05/05/18 05/06/18 06:59 06:59 06:59 Intake Total 500 960 Output Total 900 800 Balance -400 160 Result Diagrams: 05/05/18 04:27 05/05/18 04:27 EKG Reviewed by me: Yes (nsr) Phys Exam - Physical Examination Constitutional: NAD HEENT: PERRLA, moist MMs, sclera anicteric Neck: no JVD, supple Respiratory: no wheezing, no rales, no rhonchi Cardiovascular: RRR, no significant murmur, no rub Gastrointestinal: soft, non-tender, no distention, positive bowel sounds Musculoskeletal: no edema, pulses present Neurological: non-focal, normal sensation, moves all 4 limbs Psychiatric: normal affect, A&O x 3 Skin: no rash, normal turgor Dx/Plan (1) Nausea and vomiting Code(s): R11.2 - NAUSEA WITH VOMITING, UNSPECIFIED Status: Acute (2) Hyponatremia Code(s): E87.1 - HYPO-OSMOLALITY AND HYPONATREMIA Status: Acute Comment: (3) Cervical spondylosis with myelopathy and radiculopathy Code(s): M47.12 - OTHER SPONDYLOSIS WITH MYELOPATHY, CERVICAL REGION; M47.22 - OTHER SPONDYLOSIS WITH RADICULOPATHY, CERVICAL REGION Status: Chronic (4) Anxiety disorder Code(s): F41.9 - ANXIETY DISORDER, UNSPECIFIED Status: Chronic Qualifiers: (5) GERD (gastroesophageal reflux disease) Code(s): K21.9 - GASTRO-ESOPHAGEAL REFLUX DISEASE WITHOUT ESOPHAGITIS Status: Chronic (6) Microcytic anemia Code(s): D50.9 - IRON DEFICIENCY ANEMIA, UNSPECIFIED Status: Chronic (7) Osteoporosis Code(s): M81.0 - AGE-RELATED OSTEOPOROSIS W/O CURRENT PATHOLOGICAL FRACTURE Status: Chronic Qualifiers: Comment: - Plan cont current plan of care, plan discussed w/ family * DC Tele * transfer to medical * pt wants to see neurosurgeon for neck pain but she has appointment outpt, spoke with neurosurgeon that she does not need emergent surgery. * monitor sodium * dc ivf Review of Systems - Review of Systems Constitutional: negative: fever, chills, sweats, weakness, malaise, other Eyes: negative: Pain, Vision Change, Conjunctivae Inflammation, Eyelid Inflammation, Redness, Other ENT: negative: Ear Pain, Ear Discharge, Nose Pain, Nose Discharge, Nose Congestion, Mouth Pain, Mouth Swelling, Throat Pain, Throat Swelling, Other Respiratory: negative: Cough, Dry, Shortness of Breath, Hemoptysis, SOB with Excertion, Pleuritic Pain, Sputum, Wheezing Cardiovascular: negative: chest pain, palpitations, orthopnea, paroxysmal nocturnal dyspnea, edema, light headedness, other Gastrointestinal: negative: Nausea, Vomiting, Abdominal Pain, Diarrhea, Constipation, Melena, Hematochezia, Other Genitourinary: negative: Dysuria, Frequency, Incontinence, Hematuria, Retention , Other Musculoskeletal: Neck Pain. negative: Shoulder Pain, Arm Pain, Back Pain, Hand Pain, Leg Pain, Foot Pain, Other - Medications/Allergies Allergies/Adverse Reactions: Allergies Allergy/AdvReac Type Severity Reaction Status Date / Time Sulfa (Sulfonamide Allergy Severe Verified 05/04/18 04:34 Antibiotics) acetaminophen [From Midrin] Allergy Verified 05/04/18 04:35 dichloralphenazone Allergy Verified 05/04/18 04:35 [From Midrin] doxycycline Allergy Verified 05/04/18 02:10 hydrocodone Allergy Verified 05/04/18 04:34 isometheptene [From Midrin] Allergy Verified 05/04/18 04:35 morphine Allergy Verified 05/04/18 04:34 phenazopyridine Allergy Verified 05/04/18 02:10 [From Pyridate] sumatriptan [From Imitrex] Allergy Verified 05/04/18 02:10 Medications: Current Medications Acetaminophen (Tylenol) 650 mg PO Q4H PRN PRN Reason: Headache/Fever or Pain Last Admin: 05/05/18 07:54 Dose: 650 mg Al Hydroxide/Mg Hydroxide (Maalox) 15 ml PO Q4H PRN PRN Reason: Heartburn or Indigestion Alprazolam (Xanax) 0.25 mg PO BIDPRN PRN PRN Reason: Anxiety/Agitation Last Admin: 05/04/18 22:24 Dose: 0.25 mg Artificial Tears (Tears Naturale) 0 drop EA EYE PRN PRN PRN Reason: Dry Eyes Bisacodyl (Dulcolax) 10 mg [place] DAILYPRN PRN PRN Reason: Constipation Calcium Carbonate (Tums) 1,000 mg PO Q4H PRN PRN Reason: Heartburn or Indigestion Docusate Sodium (Colace) 100 mg PO BID [facility] Last Admin: 05/05/18 07:53 Dose: 100 mg Ferrous Sulfate (Feosol) 325 mg PO BID[facility] Last Admin: 05/05/18 07:53 Dose: 325 mg Guaifenesin (Robitussin Sf) 200 mg PO Q4H PRN PRN Reason: Cough Hydralazine HCl (Apresoline) 10 mg SLOW IVP Q4H PRN PRN Reason: Systolic BP > 180 Sodium Chloride (Normal Saline 0.9%) 1,000 mls @ 100 mls/hr IV .Q10H [facility] Last Admin: 05/05/18 08:07 Dose: 1,000 mls Iron/Minerals/Multivitamins (Theragran M) 1 tab PO DAILY [facility] Last Admin: 05/05/18 07:54 Dose: 1 tab Ketorolac Tromethamine (Toradol) 15 mg IVP Q8H PRN PRN Reason: Pain Stop: 05/09/18 22:33 Last Admin: 05/05/18 08:13 Dose: 15 mg Loperamide HCl (Imodium) 2 mg PO PRN PRN PRN Reason: Diarrhea/Loose Stools Loratadine (Claritin) 10 mg PO DAILYPRN PRN PRN Reason: Sinus Symptoms Magnesium Hydroxide (Milk Of Magnesium) 30 ml PO DAILYPRN PRN PRN Reason: Constipation Mineral Oil/White Petrolatum (Eucerin Cream) 0 gm TOP BIDPRN PRN PRN Reason: Dry Skin Ondansetron HCl (Zofran Odt) 4 mg PO Q6H PRN PRN Reason: Nausea/Vomiting Last Admin: 05/05/18 07:54 Dose: 4 mg Ondansetron HCl (Zofran) 4 mg IVP Q6H PRN PRN Reason: Nausea/Vomiting Last Admin: 05/04/18 14:32 Dose: 4 mg Pantoprazole Sodium (Protonix) 40 mg PO DAILY [facility] Last Admin: 05/05/18 07:54 Dose: 40 mg Phenol (Chloraseptic [place] 180 Ml Bot) 0 ml PO PRN PRN PRN Reason: Sore Throat Senna (Senokot) 2 tab PO HSPRN PRN PRN Reason: Constipation Last Admin: 05/05/18 07:53 Dose: 2 tab Sodium Chloride (Flush - Normal Saline) 10 ml IVF Q12HR [facility] Last Admin: 05/05/18 07:55 Dose: 10 ml Sodium Chloride (Flush - Normal Saline) 10 ml IVF PRN PRN PRN Reason: Saline Flush Sodium Chloride (Green Nasal [place] 0.65%) 0 ml EA NARE QIDPRN PRN PRN Reason: Nasal Congestion Temazepam (Restoril) 15 mg PO HSPRN PRN PRN Reason: Insomnia Tramadol HCl (Ultram) 50 mg PO Q6H PRN PRN Reason: Moderate Pain (4-6) Last Admin: 05/05/18 07:54 Dose: 50 mg
[2018-05-05 12:22] LABS: Anion Gap 8 mmol/L (10-20); BUN (Urea Nitrogen) 10 mg/dL (9.8-20.1); Calc. Creatinine Clearance 58 mL/min (70-130); Calcium 8.5 mg/dL (7.8-10.44); Carbon Dioxide 27 mmol/L (23-31); Chloride 94 mmol/L (98-107); Estimated GFR-MDRD Greater than 90; Glucose 99 mg/dL (80-115); Potassium 4.3 mmol/L (3.5-5.1); Sodium 125 mmol/L (136-145)
[2018-05-05] MEDS ORDERED: Cosyntropin 250 MCG VIAL SLOW IVP SCH (12:30)
[2018-05-05] MEDS: Ondansetron HCl/PF 4 MG/2 ML Vial IVP PRN ×2 (16:15→22:29)
[2018-05-05] MEDS: ALPRAZolam 0.25 MG TAB PO PRN (16:16)
--- NOTE | 2018-05-05 19:34 | PRG ---
DATE OF SERVICE: 05/05/2018 SUBJECTIVE: Patient was seen and examined at bedside and overnight events noted. Patient denies any shortness of breath or chest pain or palpitation. No history of nausea or vomiting or diarrhea or fever or chills or cramps. OBJECTIVE: GENERAL: This is a well-built female, in no apparent distress. VITAL SIGNS: Temperature 97.6, pulse 50, respiratory rate 18, blood pressure 164/75. HEENT: Atraumatic, normocephalic. Oral mucosa is moist NECK: Supple CARDIOVASCULAR: S1S2 heard, Rate and rhythm regular. RESPIRATORY: Clear to auscultation. GASTROINTESTINAL: Abdomen is soft. MUSCULOSKELETAL: No tenderness. No edema. DERMATOLOGIC: No skin rash. NEUROLOGIC: Alert and awake and oriented x3. No focal neurologic deficits. Moving all the extremit ies. PSYCHIATRIC: Mood and affect normal. LABORATORY DATA: Sodium is 125, creatinine 0.5. Cortisol is 6.4. ASSESSMENT AND PLAN: 1. Hyponatremia, most likely from hypovolemia, check cosyntropin level x2. 2. Edema, controlled. 3. Hypertension, stable. 4. Hypokalemia. 5. Anemia. Plan is to start back on IV fluids, monitor sodium closely and we will check cosyntropin stimulation. We will follow.
[2018-05-05] MEDS: Temazepam 15 MG CAP PO PRN (21:11)
[2018-05-05 21:25] LABS: Calcium 8.4 mg/dL (7.8-10.44); Chloride 96 mmol/L (98-107); Potassium 4.6 mmol/L (3.5-5.1); Sodium 126 mmol/L (136-145)
[2018-05-05 21:26] LABS: Glucose 177 mg/dL (80-115)
[2018-05-05 21:27] LABS: Anion Gap 11 mmol/L (10-20); Carbon Dioxide 24 mmol/L (23-31)
[2018-05-05 21:29] LABS: Calc. Creatinine Clearance 51 mL/min (70-130); Estimated GFR-MDRD Greater than 90
[2018-05-05 21:30] LABS: BUN (Urea Nitrogen) 10 mg/dL (9.8-20.1)
[2018-05-06] MEDS: ALPRAZolam 0.25 MG TAB PO PRN (03:01)
[2018-05-06 08:46] LABS: Anion Gap 13 mmol/L (10-20); BUN (Urea Nitrogen) 7 mg/dL (9.8-20.1); Calc. Creatinine Clearance 53 mL/min (70-130); Calcium 8.2 mg/dL (7.8-10.44); Carbon Dioxide 23 mmol/L (23-31); Chloride 102 mmol/L (98-107); Estimated GFR-MDRD Greater than 90; Glucose 163 mg/dL (80-115); Potassium 4.1 mmol/L (3.5-5.1); Sodium 134 mmol/L (136-145)
[2018-05-06] MEDS: Ferrous Sulfate 325 MG TAB PO SCH ×2 (10:54→16:59)
[2018-05-06] MEDS: Multivitamin W/ Minerals 1 TAB PO SCH (10:57)
[2018-05-06] MEDS: Docusate 100 MG CAP PO SCH ×2 (10:57→20:13)
--- NOTE | 2018-05-06 11:10 | PDOC.PN ---
- Subjective Encounter Start Date: 05/06/18 Encounter Start Time: 10:15 Subjective: no nausea or vomiting now -: has left UE parasthesias and pain radiating from neck -: is moving all extremities, at bedside - Objective Resuscitation Status: Resuscitation Status FULL:Full Resuscitation MAR Reviewed: Yes Vital Signs & Weight: Vital Signs (12 hours) Temp Pulse Resp BP Pulse Ox 05/06/18 07:58 98 F 80 20 120/67 98 05/05/18 23:35 98.1 F 74 12 111/67 98 Weight Admit Weight 83 lb Weight 83 lb 9.6 oz I&O: 05/05/18 05/06/18 05/07/18 06:59 06:59 06:59 Intake Total 960 480 Output Total 800 Balance 160 480 Result Diagrams: 05/05/18 04:27 05/06/18 08:17 Phys Exam - Physical Examination HEENT: PERRLA, moist MMs Neck: no JVD, supple Respiratory: no wheezing, no rales Cardiovascular: RRR, no significant murmur Gastrointestinal: soft, non-tender, positive bowel sounds Musculoskeletal: no edema, pulses present Neurological: non-focal, moves all 4 limbs Psychiatric: A&O x 3 Dx/Plan (1) Hyponatremia Code(s): E87.1 - HYPO-OSMOLALITY AND HYPONATREMIA Status: Acute Comment: (2) Nausea and vomiting Code(s): R11.2 - NAUSEA WITH VOMITING, UNSPECIFIED Status: Acute Qualifiers: Vomiting type: unspecified (3) Cervical spondylosis with myelopathy and radiculopathy Code(s): M47.12 - OTHER SPONDYLOSIS WITH MYELOPATHY, CERVICAL REGION; M47.22 - OTHER SPONDYLOSIS WITH RADICULOPATHY, CERVICAL REGION Status: Chronic (4) Osteoporosis Code(s): M81.0 - AGE-RELATED OSTEOPOROSIS W/O CURRENT PATHOLOGICAL FRACTURE Status: Chronic Qualifiers: Osteoporosis type: unspecified Comment: (5) Protein-calorie malnutrition, moderate Code(s): E44.0 - MODERATE PROTEIN-CALORIE MALNUTRITION Status: Chronic - Plan hemo/neurostable -: d/w wants neurosurgery to see his -: d/w -: sodium is almost normal, encourage po intake -: is on toradol and ultram prn. DC iv fluids * . Review of Systems - Medications/Allergies Allergies/Adverse Reactions: Allergies Allergy/AdvReac Type Severity Reaction Status Date / Time Sulfa (Sulfonamide Allergy Severe Verified 05/04/18 04:34 Antibiotics) acetaminophen [From Midrin] Allergy Verified 05/04/18 04:35 dichloralphenazone Allergy Verified 05/04/18 04:35 [From Midrin] doxycycline Allergy Verified 05/04/18 02:10 hydrocodone Allergy Verified 05/04/18 04:34 isometheptene [From Midrin] Allergy Verified 05/04/18 04:35 morphine Allergy Verified 05/04/18 04:34 phenazopyridine Allergy Verified 05/04/18 02:10 [From Pyridate] sumatriptan [From Imitrex] Allergy Verified 05/04/18 02:10 Medications: Current Medications Acetaminophen (Tylenol) 650 mg PO Q4H PRN PRN Reason: Headache/Fever or Pain Last Admin: 05/05/18 13:36 Dose: 650 mg Al Hydroxide/Mg Hydroxide (Maalox) 15 ml PO Q4H PRN PRN Reason: Heartburn or Indigestion Alprazolam (Xanax) 0.25 mg PO BIDPRN PRN PRN Reason: Anxiety/Agitation Last Admin: 05/06/18 03:01 Dose: 0.25 mg Artificial Tears (Tears Naturale) 0 drop EA EYE PRN PRN PRN Reason: Dry Eyes Bisacodyl (Dulcolax) 10 mg [place] DAILYPRN PRN PRN Reason: Constipation Calcium Carbonate (Tums) 1,000 mg PO Q4H PRN PRN Reason: Heartburn or Indigestion Cosyntropin (Cortrosyn) 250 mcg SLOW IVP [facility] Last Admin: 05/06/18 08:39 Dose: 250 mcg Docusate Sodium (Colace) 100 mg PO BID [facility] Last Admin: 05/06/18 10:57 Dose: 100 mg Ferrous Sulfate (Feosol) 325 mg PO BID[facility] Last Admin: 05/06/18 10:54 Dose: 325 mg Guaifenesin (Robitussin Sf) 200 mg PO Q4H PRN PRN Reason: Cough Hydralazine HCl (Apresoline) 10 mg SLOW IVP Q4H PRN PRN Reason: Systolic BP > 180 Sodium Chloride (Normal Saline 0.9%) 1,000 mls @ 100 mls/hr IV .Q10H [facility] Last Admin: 05/05/18 21:10 Dose: 1,000 mls Iron/Minerals/Multivitamins (Theragran M) 1 tab PO DAILY [facility] Last Admin: 05/06/18 10:57 Dose: 1 tab Ketorolac Tromethamine (Toradol) 15 mg IVP Q8H PRN PRN Reason: Pain Stop: 05/09/18 22:33 Last Admin: 05/05/18 16:16 Dose: 15 mg Loperamide HCl (Imodium) 2 mg PO PRN PRN PRN Reason: Diarrhea/Loose Stools Loratadine (Claritin) 10 mg PO DAILYPRN PRN PRN Reason: Sinus Symptoms Magnesium Hydroxide (Milk Of Magnesium) 30 ml PO DAILYPRN PRN PRN Reason: Constipation Mineral Oil/White Petrolatum (Eucerin Cream) 0 gm TOP BIDPRN PRN PRN Reason: Dry Skin Ondansetron HCl (Zofran Odt) 4 mg PO Q6H PRN PRN Reason: Nausea/Vomiting Last Admin: 05/05/18 13:38 Dose: 4 mg Ondansetron HCl (Zofran) 4 mg IVP Q6H PRN PRN Reason: Nausea/Vomiting Last Admin: 05/05/18 22:29 Dose: 4 mg Pantoprazole Sodium (Protonix) 40 mg PO DAILY [facility] Last Admin: 05/06/18 10:57 Dose: 40 mg Phenol (Chloraseptic [place] 180 Ml Bot) 0 ml PO PRN PRN PRN Reason: Sore Throat Senna (Senokot) 2 tab PO HSPRN PRN PRN Reason: Constipation Last Admin: 05/05/18 07:53 Dose: 2 tab Sodium Chloride (Flush - Normal Saline) 10 ml IVF Q12HR [facility] Last Admin: 05/06/18 10:57 Dose: 10 ml Sodium Chloride (Flush - Normal Saline) 10 ml IVF PRN PRN PRN Reason: Saline Flush Sodium Chloride ([place]ard Nasal [place] 0.65%) 0 ml EA NARE QIDPRN PRN PRN Reason: Nasal Congestion Temazepam (Restoril) 15 mg PO HSPRN PRN PRN Reason: Insomnia Last Admin: 05/05/18 21:11 Dose: 15 mg Tramadol HCl (Ultram) 50 mg PO Q6H PRN PRN Reason: Moderate Pain (4-6) Last Admin: 05/05/18 21:10 Dose: 50 mg
[2018-05-06] MEDS: Ondansetron ODT 4 MG TAB PO PRN (13:43)
[2018-05-06] MEDS: traMADol HCl 50 MG TAB PO PRN ×2 (13:43→20:11)
--- NOTE | 2018-05-06 17:09 | HP ---
This is a 50-minute initial hospital visit note in which 50 minutes were spent in review the imaging record, evaluation and examination of the patient and formulation of a plan. Greater than 50% of the time was spent counseling on Cm Aguilera. CHIEF COMPLAINT: Neck and left C6 and C7 radiculopathy with disk extrusion with foraminal stenosis of 2-week duration. HISTORY OF PRESENT ILLNESS: Ms. Aguilera is a 67-year-old woman. She was already arranged to be seen by Dr. Meza in our clinic on 05/23/2018, in an expedited fashion due to neck and left upper extremity pain in a C6 and C7 dermatomal distribution. MRI from the [facility] demonstrates the aforementioned stenosis at C5-C6 and C6-C7. The patient states that she essentially developed a pain overnight with no inciting factor. She was admitted as her pain had been under control with oral steroid pack as prescribed by Dr. Youssef, but unfortunately following that her symptoms got worse. She has had a generalized intolerance to narcotics, which resulted in vomiting and again increased spinal. She has not tried physical therapy nor has she tried any epidural steroid injections. PHYSICAL EXAMINATION: She is alert and appropriate. She has giveway weakness in the C6 and C7 myotomes, but no jenise evidence of myotomal weakness. She moves her right upper extremity without any apparent deficit. IMPRESSION AND PLAN: I had a long discussion and answered multiple questions from the patient and her . I would advocate at least a brief course of epidural steroid injections targeting the left C6 and left C7 nerve roots at C5- C6 and C6-C7 and I have placed a consult in this regard given a course of physical therapy and keeping the appointment with Dr. Meza on 05/23/2018 is advised. Final issue, the patient failed conservative management, consideration of a C5-C7 ACDF maybe given. She has a history of minimally invasive lumbar spine surgery at [facility] in the past and as such, she has experienced with spinal surgery. If she is able to get her pain under good control or satisfactory control, we would allow her to be dismissed during the weekend and I certainly would be in favor of that and I will reach out to doctors Austyn and Jason to facilitate outpatient injection hopefully next week. If she is unable to get her pain under control, I have discussed with Dr. Colin that potentially they could do the injections inpatient. Nevertheless, continued aggressive pain management with medication and the patient will tolerate, would be most beneficial perhaps neuropathic pain medication such as gabapentin or pregabalin may be employed as well. However, at this point, I would certainly not advocate for any emergent or urgent surgery in the patient's cervical spine. The family is in complete agreement in that regard. DIAGNOSES: Neck and left arm pain with cervical stenosis radiculopathy. JOSS
--- NOTE | 2018-05-06 19:56 | PRG ---
DATE OF SERVICE: 05/06/2018 NEPHROLOGY PROGRESS NOTE SUBJECTIVE: Patient was seen and examined at bedside and overnight events noted. Patient denies any shortness of breath or chest pain or palpitation. No history of nausea or vomiting or diarrhea or f ever or chills or cramps. OBJECTIVE: GENERAL: This is a well-built female in no apparent distress. VITAL SIGNS: Temperature 98.1, pulse 84, respirations 16, blood pressure 143/67. HEENT: Atraumatic, normocephalic. Oral mucosa is moist. NECK: Supple. CARDIOVASCULAR: S1, S2 heard. Rate and rhythm regular. RESPIRATORY: Clear to auscultation. GASTROINTESTINAL: Abdomen is soft. MUSCULOSKELETAL: No tenderness. No edema. DERMATOLOGIC: No skin rash. NEUROLOGIC: Alert and awake and oriented x3. No focal neurologic deficits. Moving all the extremiti es. PSYCHIATRIC: Mood and affect normal. LABORATORY DATA: Sodium is 134, potassium 4.1, BUN 7, creatinine 0.3. ASSESSMENT AND PLAN: 1. Hyponatremia. Sodium level is better. 2. Hypochloremia. 3. Edema. 4. Hypertension, stable. 5. Anemia. 6. Hyponatremia, better. We will continue on IV fluids as tolerated and monitor sodium level closel y. Limit fluid intake.
[2018-05-06] MEDS: Temazepam 15 MG CAP PO PRN (20:13)
[2018-05-07] MEDS ORDERED: diphenhydrAMINE 25 MG CAP PO PRN (01:19)
[2018-05-07] MEDS: traMADol HCl 50 MG TAB PO PRN ×2 (01:26→08:05)
[2018-05-07 04:48] LABS: Anion Gap 10 mmol/L (10-20); BUN (Urea Nitrogen) 10 mg/dL (9.8-20.1); Calc. Creatinine Clearance 0 mL/min (70-130); Calcium 8.2 mg/dL (7.8-10.44); Carbon Dioxide 28 mmol/L (23-31); Chloride 101 mmol/L (98-107); Estimated GFR-MDRD Greater than 90; Glucose 76 mg/dL (80-115); Sodium 135 mmol/L (136-145)
[2018-05-07] MEDS: Ferrous Sulfate 325 MG TAB PO SCH (08:04)
[2018-05-07] MEDS: Ondansetron ODT 4 MG TAB PO PRN (08:05)
[2018-05-07] MEDS: Docusate 100 MG CAP PO SCH (08:05)
[2018-05-07] MEDS: Multivitamin W/ Minerals 1 TAB PO SCH (08:05)
[2018-05-07] MEDS: ALPRAZolam 0.25 MG TAB PO PRN (08:06)
[2018-05-07] MEDS ORDERED: Lidocaine 5% Patch TD SCH (09:00)
[2018-05-07 09:25] VITALS: BP 149/71; TEMP 97.4
--- NOTE | 2018-05-07 10:14 | PDOC.PN ---
- Subjective Encounter Start Date: 05/07/18 Encounter Start Time: 08:55 Subjective: pain is better -: is amb in room -: at bedside - Objective Resuscitation Status: Resuscitation Status FULL:Full Resuscitation MAR Reviewed: Yes Vital Signs & Weight: Vital Signs (12 hours) Temp Pulse Resp BP Pulse Ox 05/07/18 08:00 97.4 F L 79 18 149/71 H 99 Weight Admit Weight 83 lb Weight 2.716 oz I&O: 05/06/18 05/07/18 05/08/18 06:59 06:59 06:59 Intake Total 480 1 Balance 480 1 Result Diagrams: 05/05/18 04:27 05/07/18 04:21 Phys Exam - Physical Examination HEENT: PERRLA, moist MMs Neck: no nodes, no JVD Respiratory: no wheezing, no rales Cardiovascular: RRR, no significant murmur Gastrointestinal: soft, non-tender, positive bowel sounds Musculoskeletal: no edema, pulses present Neurological: non-focal, moves all 4 limbs Psychiatric: normal affect, A&O x 3 Dx/Plan (1) Hyponatremia Code(s): E87.1 - HYPO-OSMOLALITY AND HYPONATREMIA Status: Resolved Comment: (2) Nausea and vomiting Code(s): R11.2 - NAUSEA WITH VOMITING, UNSPECIFIED Status: Resolved Qualifiers: Vomiting type: unspecified (3) Cervical spondylosis with myelopathy and radiculopathy Code(s): M47.12 - OTHER SPONDYLOSIS WITH MYELOPATHY, CERVICAL REGION; M47.22 - OTHER SPONDYLOSIS WITH RADICULOPATHY, CERVICAL REGION Status: Chronic (4) Osteoporosis Code(s): M81.0 - AGE-RELATED OSTEOPOROSIS W/O CURRENT PATHOLOGICAL FRACTURE Status: Chronic Qualifiers: Osteoporosis type: unspecified Comment: (5) Protein-calorie malnutrition, moderate Code(s): E44.0 - MODERATE PROTEIN-CALORIE MALNUTRITION Status: Chronic - Plan hemo/neurostable -: dc pt home -: for likely epidural shot to c.spine area in am with f/u with Pain mgmt -: outpt rehab for PT and cervical exercises * .
--- NOTE | 2018-05-07 13:05 | DIS ---
DATE OF ADMISSION: 05/03/2018 DATE OF DISCHARGE: 05/07/2018 DISCHARGE DISPOSITION: To home. PRIMARY DISCHARGE DIAGNOSES: Intractable nausea and vomiting, resolved. Hyponatremia, resolved. Ce rvical radiculopathy for outpatient workup. Chronic osteoporosis. Moderate malnutrition. PROCEDURES DONE DURING HOSPITALIZATION: The patient had a chest x-ray done which showed no acute pro cess. H&H 11 and 33, platelet count 285, MCV is 66. Sodium level was 120 on the day of admission [facility] discharge numbers of 135. TSH 3.0. Albumin was 3.7. DISCHARGE MEDICATIONS: Lidocaine transdermal patch once daily, Ultram p.r.n. for pain, multivitamin 1 tab once daily, ferrous sulfate 325 mg twice daily, Eletriptan p.o. daily p.r.n., Colace 100 mg twi ce daily, Xanax 0.25 mg p.o. at bedtime p.r.n., alendronate 70 mg p.o. once a week. ALLERGIES: SULFA, DICHLORALPHENAZONE, ACETAMINOPHEN, DOXYCYCLINE, HYDROCODONE, MORPHINE, PHENAZOPYRI DINE, SUMATRIPTAN. DISCHARGE PLAN: The patient to follow up with Dr. Zaman in the morning. She needs to follow u p with Dr. Meza as before and primary care physician in 1 week. BRIEF COURSE DURING HOSPITALIZATION: The patient initially got admitted on the with complaints of severe nausea and vomiting. She also had severe neck pain radiating to her left upper extremity. 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 She has followup appointment [facility] Dr. Meza on the for the same. The patient's initial sodium was 120 with serum osmolality of 255. She was given IV fluids and gently hydrated. The patient's nausea and vomiting resolved. I n view of patient's severe radicular pain in the left upper extremity and family wanting to see a reynaldo rosurgeon while she was here, Dr. Mancilla was consulted. The plan is for patient to follow up with pa in management in the morning for possible epidural shot at C5-C6 area. Her radiculopathy started 2 t o 2-1/2 weeks back. She will also need outpatient neuro rehab for her cervical spine. She also need s to keep her follow up appointment with Dr. Meza on the . She is otherwise hemodynamically s table and will be shortly discharged home.
--- NOTE | 2018-05-07 13:53 | PRG ---
DATE OF SERVICE: 05/07/2018 SUBJECTIVE: Patient was seen and examined at bedside and overnight events noted. Patient denies any shortness of breath or chest pain or palpitation. No history of nausea or vomiting or diarrhea or f ever or chills or cramps. OBJECTIVE: GENERAL: This is a well-built female in no apparent distress. VITAL SIGNS: Temperature 98.7, pulse 70, respiratory rate 18, blood pressure 149/71. HEENT: Atraumatic, normocephalic. Oral mucosa is moist. NECK: Supple. CARDIOVASCULAR: S1, S2 heard. Rate and rhythm regular. RESPIRATORY: Clear to auscultation. GASTROINTESTINAL: Abdomen is soft. MUSCULOSKELETAL: No tenderness. No edema. DERMATOLOGIC: No skin rash. NEUROLOGIC: Alert and awake and oriented x3. No focal neurologic deficits. Moving all the extremit ies. PSYCHIATRIC: Mood and affect normal. LABORATORY DATA: Sodium is 135, potassium 4.0, BUN is 10, creatinine 0.5. ASSESSMENT AND PLAN: 1. Hyponatremia. Sodium level is stable and okay to discharge home. 2. Hypochloremia. 3. Edema. 4. Anemia. Overall, sodium level is stable, limit fluid intake.
[2018-05-07] MEDS ORDERED: Lidocaine Patch Removal 1 EACH TOP SCH (21:00)
== END 2018-05-07 11:20 | disposition home or self-care (01) | DRG 641 ==
LOC: ERS 21:09 → 2NO 23:51 → ONC 05-05 09:54
PROVIDERS: ADMIT Internal Medicine; ATTEND Internal Medicine
DX: E87.1 Hypo-osmolality and hyponatremia (principal); E44.0 Moderate protein-calorie malnutrition; M47.12 Other spondylosis with myelopathy, cervical region; R11.2 Nausea with vomiting, unspecified; M81.0 Age-related osteoporosis without current pathological fracture; F41.9 Anxiety disorder, unspecified; G47.00 Insomnia, unspecified; E86.1 Hypovolemia; E87.6 Hypokalemia; D50.9 Iron deficiency anemia, unspecified; K21.9 Gastro-esophageal reflux disease without esophagitis; Z85.3 Personal history of malignant neoplasm of breast; Z90.12 Acquired absence of left breast and nipple; Z88.2 Allergy status to sulfonamides
CPT/HCPCS: 36415; 71045; 80048; 80053; 80400; 82533; 83735; 83930; 83935; 84100; 84300; 84443; 85025; 93005; 96361; 96365; 96375; A4216; G8978-GP-CM; G8979-GP-CK; J0834; J1885; J2270; J2405; J2765; Q0162

== ENCOUNTER 2019-04-17 14:27 | Outpatient (CLI) | payer MEDICARE, BC ==
--- NOTE | 2019-04-17 15:37 | RAD ---
XR Thoracic Spine 2 View: 04/17/2019 12:00 AM CLINICAL INDICATION: Dorsopathy, thoracic spine COMPARISON: None. FINDINGS: Fracture:No fracture. Arthropathy:Moderate multilevel degenerative change. There is S-shaped curvature, convex to the right superiorly and convex to the left inferiorly, involving imaged thoracolumbar spine Incidental findings:None of significance. IMPRESSION: 1. No acute compression fracture. 2. Multilevel degenerative change.
== END 2019-04-17 14:28 | disposition home or self-care (01) ==
LOC: BICRAD 14:27
PROVIDERS: ATTEND Internal Medicine Rheumatology
DX: M53.84 Other specified dorsopathies, thoracic region (principal); M47.814 Spondylosis without myelopathy or radiculopathy, thoracic region
CPT/HCPCS: 72070

== ENCOUNTER → 2021-06-06 | Outpatient (CLI) | payer MEDICARE, BC | LOC: CTENTCT 11:03 | PROVIDERS: ATTEND Otolaryngology Plastic Surgery within the Head & Neck | DX: J32.8 Other chronic sinusitis (principal) | CPT/HCPCS: 70486 ==

== ENCOUNTER 2023-02-11 09:32 | Outpatient (CLI) | payer OTHER, BC | END 2023-02-11 09:33 | disposition home or self-care (01) | LOC: DTY/OP 09:32 | PROVIDERS: ATTEND Internal Medicine | DX: R63.4 Abnormal weight loss (principal) | CPT/HCPCS: 97802 ==